=== PATIENT | male | born 1960 | race Caucasian/White ===

== ENCOUNTER 2021-03-07 12:56 | Emergency (ER) | payer OTHER, SELFPAY ==
--- NOTE | ~2021-03-07 | CT_ITS ---
EXAMINATION: CT abdomen pelvis w con DATE: 03/07/2021 INDICATION: Right-sided abdominal pain TECHNIQUE: Computed tomography (CT) of the abdomen and pelvis was performed with 100 mL Omnipaque-350 intravenous contrast. Automated exposure control and iterative reconstruction technique were employe d. The dose-length product was 328.18 mGy-cm. COMPARISON: None FINDINGS: Subtle patchy groundglass opacities in the bilateral lower lobes. Heart size is normal. Mild atherosc lerotic coronary artery calcification. No pericardial or pleural effusion. Small sliding-type hiatal hernia. There are several hepatic lesions the largest in the right hepatic lobe measuring 1.7 cm with suggestion of some peripheral puddling of contrast favoring hemangioma. A smaller 6 mm lesion in the left hepatic lobe demonstrates low attenuation most likely hepatic cyst. There into the lesion measu res approximately 7 mm with more ill-defined margins. Gallbladder, spleen, pancreas, bilateral adrena l glands and kidneys are normal. Bowels including the appendix are normal. Bladder is normal. Prostat omegaly measuring 4.9 x 3.9 cm. No free intraperitoneal gas or fluid. No pathologically enlarged abdo ya or pelvic lymphadenopathy. Severe lower thoracic spondylosis. Mild bilateral hip osteoarthritis with subarticular cystic change at the acetabula. IMPRESSION: 1. Subtle patchy groundglass opacities in the bilateral lower lungs most likely infectious or inflamm atory in etiology. 2. Normal appendix. No acute intra-abdominal/pelvic process. 3. Small sliding-type hiatal hernia. 4. 3 hepatic lesions, the largest measuring 1.7 cm with appearance suggestive but not definitive for hemangioma. Would recommend follow-up pre and postcontrast CT or MRI for more definitive determinatio n. 5. Prostatomegaly. Reviewed, dictated and finalized at location B. OPERATOR HELPER IMPRESSION: 1. Subtle patchy groundglass opacities in the bilateral lower lungs most likely infectious or inflammatory in etiology. 2. Normal appendix. No acute intra-abdominal/pelvic process. 3. Small sliding-type hiatal hernia. 4. 3 hepatic lesions, the largest measuring 1.7 cm with appearance suggestive b ut not definitive for hemangioma. Would recommend follow-up pre and postcontras t CT or MRI for more definitive determination. 5. Prostatomegaly.
[2021-03-07 13:06] VITALS: BP 157/69; PULSE 68; RESP 18; TEMP 36; O2SAT 100
--- NOTE | 2021-03-07 13:20 | ED.GENADULT ---
HPI - General Adult General Chief complaint: Abdominal Pain Stated complaint: right side pain Time Seen by Provider: 03/07/21 13:14 Source: RN notes reviewed History of Present Illness HPI narrative: Patient presents to emergency department from home for abdominal pain. Patient states pain began suddenly approximate 1 hour ago pain is located in the right side of the abdomen described as sharp and stabbing associate with nausea vomiting. States nothing makes the pain better or worse. States not taking thing for pain at home. Denies any fever chills chest pain shortness of breath or any other symptoms Related Data Home Medications Medication Instructions Recorded Confirmed quinapril 20 mg tablet 20 mg PO DAILY 11/30/19 11/29/20 simvastatin 20 mg tablet 20 mg PO DAILY 11/30/19 11/29/20 cholecalciferol (vitamin D3) 1,250 1,250 mcg PO WEEKLY 11/29/20 11/29/20 mcg (50,000 unit) oral wafer insulin glargine 100 unit/mL (3 18 unit SUBCUT DAILY ml 11/29/20 11/29/20 mL) subcutaneous pen insulin lispro 100 unit/mL 1 sliding scale dose SUBCUT 11/29/20 11/29/20 subcutaneous pen USEASDIRECTD Allergies Allergy/AdvReac Type Severity Reaction Status Date / Time Sulfa (Sulfonamide Allergy Unknown unknown Verified 03/07/21 13:28 Antibiotics) Review of Systems Review of Systems: Gen.: Denies fevers or chills ENT: Denies congestion Respiratory: Denies shortness of breath or cough CV: Denies chest pain or palpitations GI: See HPI denies burning, urgency, frequency or hematuria Musculoskeletal: Denies back pain or muscle pain Neuro: Denies numbness, tingling, weakness or focal weakness Skin: Denies rash Except as documented, all other systems reviewed and negative [facility] Past Medical History Medical History Charcot's joint of left foot Essential hypertension Other and unspecified hyperlipidemia Quadriceps strain Right thigh pain Type 1 diabetes mellitus with diabetic neuropathy Family History Family History Mother Patient's mother is in good health Father Patient's father is in good health Sibling Patient's sister is in good health Other Hypertension Social History Social History Smoking status: Never smoker Second hand tobacco smoke exposure: Yes Alcohol intake: current Substance use: never Exam Narrative: APPEARANCE: No acute distress, nontoxic, resting in bed HEENT: Normocephalic, atraumatic, OMM RESPIRATORY: No respiratory distress, clear to auscultation bilaterally with no rhonchi wheezing or rales CARDIOVASCULAR: RRR s murmur ABDOMINAL: Soft nondistended tender palpation right upper quadrant right lower quadrant no tenderness in left upper quadrant left lower quadrant no rebound or guarding MUSCULOSKELETAl: Moves all extremities. No clubbing, cyanosis or edema. NEURO: Awake and alert. Following commands, speech normal, no focal deficits SKIN:: Warm, dry. Normal Color PSYCHIATRIC: Normal affect/mood Course Course Emergency Course: Patient states pain is completely resolved at this time Discussed with patient he said no cough or shortness of breath when reviewed of the CT scan had a Covid year ago believe is likely inflammation from Covid Discussed Dr. Kaur presentation work-up discussed CT scan need for follow-up CT for possible hemangiomas in agreement at this time Discussed with patient results of workup and diagnosis. Discussed need for follow-up with primary care, proper use of medication, and reasons to return to the emergency department. Patient understands and agrees to current treatment plan Vital Signs Vital signs: Vital Signs Temperature 96.8 F L 03/07/21 13:06 Pulse Rate 68 03/07/21 13:06 Respiratory Rate 18 03/07/21 13:06 Blood Pressure 157/69 H 03/07/21 13:06 Pulse Oximetry 100 03/07/21 13:06
[2021-03-07 13:22] VITALS: O2SAT 100
[2021-03-07 13:23] LABS: Glucose Point of Care 91 mg/dl (65-105)
[2021-03-07] MEDS: SODIUM CHLORIDE 0.9% IV 1,000 ML 999 ML IV CONT (13:26)
[2021-03-07] MEDS: ONDANSETRON INJ 4 MG/2 ML VIAL IV PUSH (13:26)
[2021-03-07] MEDS: MORPHINE SULFATE (*CRX) 4 MG/ML INJ IV PUSH (13:27)
[2021-03-07 13:30] VITALS: O2SAT 100
[2021-03-07 13:34] LABS: Basophils Percent Auto 0.5 % (0.2-1.2); Eosinophils Absolute Auto 0.2 K/mm3 (0-0.3); Eosinophils Percent Auto 2.6 % (0-4.4); Hematocrit 42.1 % (42.0-52.0); Hemoglobin 14.3 g/dL (14.0-18.0); Immature Granulocyte Absolute 0.02 K/mm3 (0.00-0.031); Immature Granulocyte Percent A 0.3 % (0-0.5); Lymphocytes Absolute Auto 2.14 K/mm3 (0.9-3.2); Lymphocytes Percent Auto 29.2 % (18.3-44.2); Mean Corpuscular Hemoglobin 30.3 pg (26-34); Mean Corpuscular Volume 89.2 fl (80-100); Mean Platelet Volume 9.8 fl (7.4-10.4); Monocytes Absolute Auto 0.5 K/mm3 (0.1-0.6); Monocytes Percent Auto 6.4 % (2.6-8.5); Neutrophils Absolute Auto 4.5 K/mm3 (1.3-6.7); Platelet Count Result 226 k/mm3 (150-375); Red Blood Count 4.72 M/mm3 (4.6-6.20); Red Cell Distribution Width 12.3 % (11.5-14.5); White Blood Count 7.3 K/mm3 (4.5-10.0)
[2021-03-07 13:44] LABS: Alanine Aminotransferase 22 U/L (4-50); Albumin Level 4.7 g/dL (3.5-5.1); Alkaline Phosphatase 65 U/L (38-126); Anion Gap 8 mmol/L (8-16); Aspartate Amino Transferase 37 U/L (17-59); Bilirubin,Total 0.7 mg/dL (0.2-1.3); Blood Urea Nitrogen 21 mg/dL (9-20); Calcium 9.4 mg/dL (8.4-10.2); Carbon Dioxide 27 mmol/L (22-30); Chloride 100 mmol/L (98-107); Estimated CRCL calculation 95 ml/min; Estimated Glomerular Filt Rate > 60; Glucose 87 mg/dL (65-110); Lipase 113 U/L (23-300); Potassium 3.6 mmol/L (3.4-5.0); Sodium 135 mmol/L (137-145)
[2021-03-07 14:18] VITALS: O2SAT 100
[2021-03-07 14:27] LABS: Add Urine Microscopic? YES; Appearance Urine Cloudy (Clear); Bilirubin Urine Negative (Negative); Blood Urine 2+ (Negative); Color Urine Yellow (Yellow); Glucose Urine UA Negative (Negative); Ketones Urine Negative (Negative); Leukocyte Esterase Ur Negative LEU/UL (Negative); Mucus Urine Heavy /lpf; Nitrate Urine Negative (Negative); Protein Urine Negative (Negative); RBC Urine 21-50 /hpf (0-2); Squamous Epithelial Cell Urine Rare /hpf (Few); Urobilinogen Urine Negative mg/dL (<2.0); WBC Urine 0-3 /hpf
[2021-03-07 14:30] VITALS: BP 121/53; PULSE 90; RESP 16; O2SAT 100
--- NOTE | 2021-03-07 14:43 | PC.NURSE ---
Pt feeling much better. Dr. Navarro at bedside to update pt on results and treatment plan.
== END 2021-03-07 15:05 | disposition home or self-care (01) ==
PROVIDERS: Emergency Provider Emergency Medicine; PCP Internal Medicine
DX: R10.9 Unspecified abdominal pain (principal); I10 Essential (primary) hypertension; E10.610 Type 1 diabetes mellitus with diabetic neuropathic arthropathy; E78.5 Hyperlipidemia, unspecified; Z79.4 Long term (current) use of insulin; N40.0 Benign prostatic hyperplasia without lower urinary tract symptoms; K76.9 Liver disease, unspecified; K44.9 Diaphragmatic hernia without obstruction or gangrene; R91.8 Other nonspecific abnormal finding of lung field
CPT/HCPCS: 36415; 74177; 80053; 81001; 82948; 83690; 85025; 96361; 96374; 96375; 99284; J2270; J2405; J7030; Q9967

== ENCOUNTER → 2021-03-27 08:17 | Outpatient (CLI) | payer OTHER, SELFPAY ==
--- NOTE | ~2021-03-27 | CT_ITS ---
EXAMINATION: CT abdomen wo/w con DATE: 03/27/2021 08:45 INDICATION: Liver disease, unspecified. TECHNIQUE: Computed tomography (CT) of the abdomen was performed without and with 100 mL Omnipaque 35 0 intravenous contrast. Automated exposure control and iterative reconstruction technique were employ ed. The dose-length product was 762.30 mGy-cm. COMPARISON: CT abdomen and pelvis 03/07/2021 FINDINGS: The visualized portions of the lung bases demonstrate stable peripheral reticular and groun dglass opacities, likely chronic lung disease. No pleural effusion. The heart size is normal. No tierra cardial effusion. There are 2 cysts in the liver with the larger measuring 11 mm. There is a 2.2 cm m ass in the liver with a peripheral focus of hyperenhancement. The spleen, pancreas, adrenal glands, a nd right kidney are normal. There is cortical thinning of left kidney. The appendix is normal. There are no dilated loops of bowel. There are no pathologically enlarged lymph nodes. There is no free int raperitoneal fluid. There is mild chronic anterior wedging of multiple thoracic vertebral bodies. The re is mild thoracic and lumbar spondylosis. IMPRESSION: 1. 2.2 cm liver mass, which may be benign or less likely malignant. Abdomen MRI without and with cont rast is recommended. Reviewed, dictated and finalized at location B. ING MACHINE OPERATOR IMPRESSION: 1. 2.2 cm liver mass, which may be benign or less likely malignant. Abdomen MRI without and with contrast is recommended.
[2021-03-27 08:35] LABS: Estimated Glomerular Filt Rate > 60
== END ==
PROVIDERS: PCP Internal Medicine; Visit Provider Internal Medicine
DX: K76.9 Liver disease, unspecified (principal)
CPT/HCPCS: 74170; Q9967

== ENCOUNTER 2021-04-22 08:00 | Outpatient (CLI) | payer OTHER, SELFPAY ==
--- NOTE | ~2021-04-22 | MR_ITS ---
EXAMINATION: MR abdomen wo/w con DATE: 04/22/2021 09:32 INDICATION: Hepatomegaly, not elsewhere classified. Liver mass. TECHNIQUE: Magnetic resonance imaging (MRI) of the abdomen was performed without and with 15 mL Multi Brian intravenous contrast. Sequences included coronal T2-weighted FS FSE, coronal and axial FS FIEST A, axial T2-weighted FSE, coronal LAVA-flex, axial STIR FSE, axial DWI, axial dual-echo T1-weighted F SPGR, and axial LAVA. Postcontrast sequences included coronal LAVA-flex and a time course of axial LA VA. COMPARISON: Abdomen CT 03/27/2021 FINDINGS: In the right hepatic lobe, there is a 2.2 cm mass with delayed hyperenhancement. In the right hepatic lobe, there is a 1.4 cm mass with delayed hyperenhancement. There is a 6 mm cyst in left hepatic lob e. The gallbladder, spleen, pancreas, adrenal glands, and kidneys are normal. There are no dilated lo ops of bowel. There are no pathologically enlarged lymph nodes. There is no free intraperitoneal flui d. IMPRESSION: 1. Two liver masses measuring up to 2.2 cm with delayed hyperenhancement. In the absence of known mal ignancy or chronic liver disease, these findings are likely hemangiomas. Reviewed, dictated and finalized at location A. ELHEAD INSPECTOR IMPRESSION: 1. Two liver masses measuring up to 2.2 cm with delayed hyperenhancement. In th e absence of known malignancy or chronic liver disease, these findings are like ly hemangiomas.
== END 2021-04-22 08:01 | disposition home or self-care (01) ==
LOC: ANHIMG 08:04
PROVIDERS: PCP Internal Medicine; Visit Provider Internal Medicine
DX: R16.0 Hepatomegaly, not elsewhere classified (principal)
CPT/HCPCS: 74183; A9577

== ENCOUNTER → 2021-07-15 08:20 | Outpatient (CLI) | payer OTHER, SELFPAY ==
--- NOTE | ~2021-07-15 | XR_ITS ---
EXAMINATION: XR knee RT 3V DATE: 07/15/2021 08:36 INDICATION: Right knee pain. TECHNIQUE: 3 views of right knee including standing views were obtained. COMPARISON: Right femur radiographs 12/23/2018 FINDINGS: Bone alignment is normal. No fracture. There is mild osteoarthritis of lateral compartment characterized by a tiny osteophyte. No joint space narrowing. There is a moderate-sized knee joint ef fusion. IMPRESSION: 1. Mild right knee osteoarthritis. 2. Moderate-sized right knee joint effusion. Reviewed, dictated and finalized at location B.
== END ==
PROVIDERS: PCP Internal Medicine; Visit Provider Nurse Practitioner
DX: M17.11 Unilateral primary osteoarthritis, right knee (principal); M25.461 Effusion, right knee
CPT/HCPCS: 73562

== ENCOUNTER 2021-07-24 16:43 | Outpatient (CLI) | payer OTHER, SELFPAY ==
--- NOTE | ~2021-07-24 | MR_ITS ---
EXAMINATION: MR knee RT wo con DATE: 07/24/2021 17:52 INDICATION: Right knee pain. TECHNIQUE: Magnetic resonance imaging (MRI) of the right knee was performed without intravenous contr ast. Sequences included axial PD-weighted FS FSE, coronal PD-weighted FSE and PD-weighted FS FSE, sag ittal PD-weighted FSE, and sagittal T2-weighted FS FSE. COMPARISON: None. FINDINGS: Medial compartment: There is a bucket-handle tear of medial meniscus displaced into the intercondylar notch. There is sha llow partial-thickness cartilage loss of tibial condyle and femoral condyle. Lateral compartment: Lateral meniscus is normal. There is cartilage surface irregularity of femoral condyle. Tibial cartil age is normal. Patellofemoral compartment: There is cartilage surface irregularity of patella and trochlea. Ligaments and tendons: The anterior and posterior cruciate ligaments are normal. There are changes of prior sprains of media l collateral ligament and fibular collateral ligament characterized by thickening and increased signa l intensity proximally. There is mild patellar tendinopathy. Fluid: There is a moderate-sized knee joint effusion. There is trace fluid in a Ferreira's cyst. There is moder ate superficial infrapatellar bursitis and mild prepatellar bursitis. There is mild pes anserinus bur sitis. IMPRESSION: 1. Displaced bucket-handle tear of medial meniscus. 2. Mild tricompartmental chondrosis. 3. Moderate-sized knee joint effusion. Reviewed, dictated and finalized at location A.
== END 2021-07-24 16:44 | disposition home or self-care (01) ==
PROVIDERS: PCP Internal Medicine; Visit Provider Nurse Practitioner
DX: M17.11 Unilateral primary osteoarthritis, right knee (principal); S83.241A Other tear of medial meniscus, current injury, right knee, initial encounter; M25.461 Effusion, right knee
CPT/HCPCS: 73721

== ENCOUNTER 2021-08-04 09:31 | Outpatient (CLI) | payer OTHER, SELFPAY ==
--- NOTE | 2021-08-04 09:41 | ECG_ITS ---
Measurements Intervals [place] Rate: 70 P: 67 NE: 141 QRS: 54 QRSD: 93 T: 28 QT: 371 QTc: 402 Interpretive Statements SINUS RHYTHM BASELINE ARTIFACT- I, II, III, AVR, AVL, AVF NORMAL ECG Electronically Signed On 08-04-2021 10:21:10 CDT by Eliseo Pizarro D.O.
[2021-08-04 10:12] LABS: Anion Gap 6 mmol/L (8-16); Blood Urea Nitrogen 23 mg/dL (9-20); Calcium 8.9 mg/dL (8.4-10.2); Carbon Dioxide 25 mmol/L (22-30); Chloride 103 mmol/L (98-107); Estimated Glomerular Filt Rate > 60; Glucose 127 mg/dL (65-110); Potassium 3.9 mmol/L (3.4-5.0); Sodium 134 mmol/L (137-145)
== END 2021-08-04 09:32 | disposition home or self-care (01) ==
LOC: ANHSURGERY 09:34
PROVIDERS: Anesthesiology; PCP Internal Medicine; Visit Provider Orthopaedic Surgery
DX: E10.40 Type 1 diabetes mellitus with diabetic neuropathy, unspecified (principal); I10 Essential (primary) hypertension; Z01.818 Encounter for other preprocedural examination
CPT/HCPCS: 36415; 80048; 93005

== ENCOUNTER 2021-08-06 00:55 | Day surgery (SDC) | payer OTHER, SELFPAY ==
--- NOTE | 2021-08-01 14:44 | PC.NURSE ---
Report to the Outpatient Waiting Room, entrance under the green pavilion located off [facility], at time _1100 on date _08/06/21 . OR Time: _1300 . - You and your visitor will be asked a series of questions to screen for COVID 19 for your protection. - Only one visitor is allowed at this time. - The patient visitor is requested to leave or wait in car when not with patient. - A mask is required within the hospital. Patients may have clear liquids (water, carbonated beverages, clear teas, apple juice) until 3 hours prior to surgery with a maximum of 20 ounces. - No food from midnight until time of surgery - Infants may have breast milk until 4 hours before surgery, infant formula 6 hours prior to surgery. - Children will be allowed to drink immediately following surgery. If applicable, please bring a bottle or sippy cup to assist with drinking. Juice, water, soda, and popsicles are readily available. For infants on formula, please bring formula the day of surgery. Pacifiers are allowed. Take the following medications with a SIP of water the morning of surgery: NONE Medications to discontinue per physician PT STATES __DICLOFENAC 4 DAYS PRE OP PRE DR STRANGE_.VITAMIN D 3 DAYS PRE OP Date to take last doseDICLOFENAC 08/01/21 VITAMIN D 08/02/21 Please no make-up, nail ivorian, hairspray, perfume, deodorant, or body powder the day of surgery. No jewelry (including any body piercings) or valuables the day of surgery, leave them at home. Please take a shower or bath the night before, or the morning of, surgery with an antibacterial soap. Wear comfortable, loose fitting clothing. Children are encouraged to wear pajamas. - Jewelry must be removed prior to entering the operating room. Rings and piercings that are not removed may be cut off. - The hospital will not accept responsibility for valuables. - Please leave all valuables, including medications, at home the day of surgery. If you are going home after surgery, a licensed local company flatbed truck driver must drive you home. - NO public transportation without another adult. - We recommend that an adult stay with you for 24 hours following discharge. - We also recommend that you do not drive, make important decision, drink alcoholic beverages, or take any drugs that were not prescribed by your health care provider for at least 24 hours after your discharge time. For Pediatric surgeries, we recommend two adults accompany the child home (only one inside the building at this time). Follow any additional instructions given to you from your surgeon. If you or anyone in your household have experienced Covid symptoms in the past week, please notify your surgeon or the nurse liaison at the phone number below for possible testing. Telephone instructions given to _PATIENT AND SPOUSE and asked if any additional questions and then verbalized understanding. Patient advised to call surgeon office or pre surgery nurse liaison [phone] if any additional questions.
[2021-08-01 14:58] VITALS: BMI 23.1
[2021-08-06] VITALS (9 sets, daily range): BP systolic 102–139; BP diastolic 58–73; PULSE 55–65; RESP 12–16; TEMP 36.2–36.9; O2SAT 100
--- NOTE | 2021-08-06 07:53 | PM.IMHP ---
H&P: HPI History of Present Illness Date/Time: 08/06/21 07:53 61-year-old male patient of who presents today for arthroscopy of his right knee partial medial meniscectomy. He injured his knee on July 08 of this year. He [place] in [place] moving [place]. He was picking up a large rocks and twisting on his knee throwing them. When he was doing this he felt some pain in the knee. It became worse and swollen in the evening. The next day was extremely painful for him and he was unable to straighten it all the way. He did talk to his primary care doctor had an MRI scan on July 24. He was seen in the office by Dr. Pena on 08/01. MRI scan is reviewed. Patient was found have a displaced bucket-handle tear of the medial meniscus. He presents today for arthroscopy for this. Chief Complaint: Bucket-handle tear medial meniscus right knee. Review of Systems Review of Systems: All systems reviewed & are unremarkable except as noted in HPI and below PMFSH Past Medical History Medical History Charcot's joint of left foot Essential hypertension Other and unspecified hyperlipidemia Quadriceps strain Right thigh pain Type 1 diabetes mellitus with diabetic neuropathy Family History Family History Mother Patient's mother is in good health Father Patient's father is in good health Sibling Patient's sister is in good health Other Hypertension Social History Social History Smoking status: Never smoker Second hand tobacco smoke exposure: Yes Alcohol intake: current Alcohol use details: ONE DRINK PER MONTH Substance use: never Living arrangements: with family Spiritual care concerns: No Meds Home Medications and Allergies Home Medications Medication Instructions Recorded Confirmed Type quinapril 20 mg tablet 20 mg PO HS 11/30/19 08/01/21 History simvastatin 20 mg tablet 20 mg PO HS 11/30/19 08/01/21 History cholecalciferol (vitamin D3) 1,250 1,250 mcg PO WEEKLY 11/29/20 08/01/21 History mcg (50,000 unit) oral wafer insulin glargine 100 unit/mL (3 18 unit SUBCUT HS ml 11/29/20 08/01/21 History mL) subcutaneous pen insulin lispro 100 unit/mL 7 - 10 sliding scale dose SUBCUT 11/29/20 08/01/21 History subcutaneous pen USEASDIRECTD diclofenac sodium 75 mg 75 mg PO BID PRN #60 tablet 07/22/21 08/01/21 Rx tablet,delayed release Allergies Allergy/AdvReac Type Severity Reaction Status Date / Time Sulfa (Sulfonamide Allergy Severe Rash Verified 08/01/21 14:35 Antibiotics) Exam Narrative: 61-year-old male very alert pleasant. He is 5 ft 10 169 lb. He has a mild effusion right knee. Range of motion is from 5-130 degrees he has pain at extremes. Hip range of motion is full without discomfort negative Stinchfield maneuver. 2+ dorsalis pedis and posterior tibial artery pulse. Normal stability in the knee. No edema in lower extremity. Resp: Auscultation: clear to auscultation bilaterally Cardio: Rate: regular rate Rhythm: regular rhythm Assessment and Plan Additional Plan 61-year-old male who has a displaced bucket-handle tear of the medial meniscus with a locked knee. MRI scan was reviewed and findings were discussed with the patient. This is best treated with arthroscopy with removal of the bucket-handle tear. Surgical procedure as well as risks and complications were discussed in detail questions were answered and patient would like to proceed. He will see his primary care doctor pre-surgical clearance. He has been taking diclofenac and will stop this 1 week prior to surgery as well as any other aspirin or ibuprofen products.
[2021-08-06] MEDS: ACETAMINOPHEN 500 MG TABLET 1000 MG PO (11:27)
[2021-08-06] MEDS: LACTATED RINGERS 1,000 ML 30 ML IV CONT ×2 (11:37→15:01)
[2021-08-06] MEDS: KETOROLAC 15 MG/ML VIAL (*BKC) IV PUSH (11:40)
[2021-08-06 11:53] LABS: Glucose Point of Care 148 mg/dl (65-105)
--- NOTE | 2021-08-06 12:09 | WPDANESEPPF ---
Anes - Initial Pre Proc Eval Procedure: Operation Date: 08/06/21 13:00 Proposed Procedures p Right Knee Arthroscopy, Partial Medial Meniscectomy, proceed as indicated - Vasyl Pena MD Date/Time: 08/06/21 12:09 Surgeon: Vasyl Pena MD Pre Op Diagnosis: Bucket Handle Meniscus Tear Rt Knee Patient Data Age: 61 Gender: M Height: 1.85 m Weight: 75.9 kg Last Vital Signs Temp 36.9 C 08/06/21 11:20 Pulse 65 08/06/21 11:20 Resp 16 08/06/21 11:20 BP 118/62 08/06/21 11:20 Pulse Ox 100 08/06/21 11:20 Allergies Allergy/AdvReac Type Severity Reaction Status Date / Time Sulfa (Sulfonamide Allergy Severe Rash Verified 08/06/21 11:06 Antibiotics) Home Medications Medication Instructions Recorded Confirmed Type quinapril 20 mg tablet 20 mg PO HS 11/30/19 08/06/21 History simvastatin 20 mg tablet 20 mg PO HS 11/30/19 08/06/21 History cholecalciferol (vitamin D3) 1,250 1,250 mcg PO WEEKLY 11/29/20 08/06/21 History mcg (50,000 unit) oral wafer insulin glargine 100 unit/mL (3 18 unit SUBCUT HS ml 11/29/20 08/01/21 History mL) subcutaneous pen insulin lispro 100 unit/mL 7 - 10 sliding scale dose SUBCUT 11/29/20 08/06/21 History subcutaneous pen USEASDIRECTD diclofenac sodium 75 mg 75 mg PO BID PRN #60 tablet 07/22/21 08/06/21 Rx tablet,delayed release Laboratory Tests 08/06/21 11:52 POC Capillary Glucose 148 mg/dl H mg/dl (65-105) Patient hx anesthesia problems: none Family hx anesthesia problems: none Results Review: All pre-operative results and documents have been reviewed as part of the pre-operative evaluation. [facility] Past Medical History Medical History Charcot's joint of left foot Essential hypertension Other and unspecified hyperlipidemia Quadriceps strain Right thigh pain Type 1 diabetes mellitus with diabetic neuropathy Family History Family History Mother Patient's mother is in good health Father Patient's father is in good health Sibling Patient's sister is in good health Other Hypertension Social History Social History Smoking status: Never smoker Second hand tobacco smoke exposure: Yes Alcohol intake: current Alcohol use details: ONE DRINK PER MONTH Substance use: never Living arrangements: with family Spiritual care concerns: No Anes - Eval Final PreProcedure Day of Procedure 08/06/21 12:09 Patient weight: normal Heart: regular rate and rhythm Lungs: clear to auscultation Airway: Mallampati scale class II Neurological: alert and oriented Last oral intake: >/= 8 hours ASA classification: II Emergent: no Anesthetic plan: proceed Anesthesia type and monitoring: general LMA and standard monitoring Results Review: All pre-operative results and documents have been reviewed as part of the pre-operative evaluation. Informed Consent: The patient's anesthetic plan and its attendant risks and benefits were discussed with the patient/family/POA. Questions were solicited and answers provided to the satisfaction of the patient/family/POA.
--- NOTE | 2021-08-06 12:56 | WPDHPUPDATE1 ---
History and Physical Update Update Date/Time: 08/06/21 12:56 History and Physical has been reviewed, including an updated exam of the patient. There are NO changes in the patient's condition. Risks, benefits, and alternatives have been discussed and questions answered. Patient agrees to proceed with procedure.
[2021-08-06] MEDS: ceFAZolin 2 GM/D5W 50 ML 2 GM/50 ML BAG IVPB (13:23)
--- NOTE | 2021-08-06 15:22 | W.PM.PROC2 ---
Procedure Note - Detailed Date of Procedure 08/06/21 Pre-op Diagnosis Bucket Handle Meniscus Tear Rt Knee Post-op Diagnosis Same Procedure Performed Arthroscopic partial medial meniscectomy right knee Surgeon Vasyl Pena MD [employer] Business [employer] Officer [place] Anesthesia General Description of Procedure Patient was brought to the operating room and general anesthesia was administered. He received 2 g of Ancef preoperatively and the right leg was prepped draped usual fashion in the arthroscopic leg jauregui. We did not elevate the tourniquet during the procedure. 1% lidocaine with epinephrine was injected in the joint and into the portal sites for hemostasis and analgesia. Superomedial and anterior inferior portals were placed. The medial compartment was inspected. There was a displaced bucket-handle tear of the medial meniscus still attached at the anterior root and at the posterior root. The posterior horn went across the front the medial femoral condyle and posteriorly through the intercondylar notch. The meniscus was reduced. The tear was a white-white tear and given his age was recommended to have this resected as the healing potential with repair would be questionable. Arthroscopic punch and motorized shaver was used to remove the medial meniscus piecemeal. It was released from the anterior horn and the anterior root was transitioned. We took care to preserve his remaining medial meniscus tissue that was peripheral to the torn portion. Resection proceeded to the posterior root. There was chondromalacia superficial fibrillation diffusely over the anterior 1/2 of the medial femoral condyle evidently where this was articulating with the displaced bucket-handle tear of meniscus. The posterior weight-bearing portion the medial femoral condyle looked very good as the medial tibial plateau. ACL looked normal. Lateral compartment was normal. The patellofemoral joint showed chondromalacia superficial grade 1-2 in the patella and normal appearing trochlea. The suprapatellar pouch was flushed and free of debris. The portals were closed with 4-0 nylon suture in a soft bulky dressing applied the trace patient transferred postop recovery room in stable condition. Estimated Blood Loss 0 Tourniquet Time 0 Drains No Packing No Pathology None sent Complications No immediate complications Condition Stable Disposition PACU
[2021-08-06 15:27] LABS: Glucose Point of Care 129 mg/dl (65-105)
[2021-08-06 15:27] LABS: Glucose Point of Care 129 mg/dl (65-105)
[2021-08-06 16:33] LABS: Glucose Point of Care 111 mg/dl (65-105)
== END 2021-08-06 17:15 | disposition home or self-care (01) ==
PROVIDERS: PCP Internal Medicine; Visit Provider Orthopaedic Surgery
PROC: (CPT 29870; principal; 2021-08-06 13:00)
DX: S83.211A Bucket-handle tear of medial meniscus, current injury, right knee, initial encounter (principal); X50.0XXA Overexertion from strenuous movement or load, initial encounter; E10.40 Type 1 diabetes mellitus with diabetic neuropathy, unspecified; E10.610 Type 1 diabetes mellitus with diabetic neuropathic arthropathy; Z79.4 Long term (current) use of insulin; I10 Essential (primary) hypertension; E78.49 Other hyperlipidemia
CPT/HCPCS: 29881; 36415; 80048; 82948; 93005; A9270; J0690; J1885; J2250; J2405; J2704; J3010; J7120

== ENCOUNTER 2022-08-20 08:47 | Outpatient (CLI) | payer OTHER, SELFPAY ==
--- NOTE | ~2022-08-20 | NM_ITS ---
EXAMINATION: NM ubaldo stress w perfusion DATE: 08/20/2022 14:10 CDT INDICATION: Chest pain TECHNIQUE: Rest images were obtained following intravenous administration of 9.2 mCi Tc99m tetrofosmi n (Myoview). The patient was infused intravenously with Lexiscan (regadenoson). Then, 30 mCi Tc99m te trofosmin (Myoview) was administered intravenously, and stress images were obtained. Data was reconst ructed into short axis and horizontal and vertical long axis SPECT images. Gated SPECT images were al so obtained. COMPARISON: None. FINDINGS: There is no definite reversible or fixed perfusion abnormality to suggest ischemia or infar ction. There is no segmental wall motion abnormality. Left ventricular ejection fraction measures 6 6%. IMPRESSION: 1. No definite ischemia or infarct. 2. Normal left ventricular ejection fraction measuring 66%. Reviewed, dictated and finalized at location L.
--- NOTE | 2022-08-20 08:57 | EST_ITS ---
Patient Info Name: Luis Armando Villar Age: 62 years : 1960 Gender: Male Ht: 73 in Wt: 175 lbs BSA: 2.02 m2 Exam Date: 08/20/2022 9:48 AM Exam Location: [facility] Stress Patient Status: Outpatient Admit Date: 08/20/2022 Staff Ordering Physician: Rob Lugo APRN Attending Provider: Rob Lugo APRN Exercise Technologist: Aimee Cabrera RDCS Exercise Physician: Eliseo Pizarro DO Exam Type: CA stress ubaldo w NM Study Info Indications R07.9 - Chest pain, unspecified A regadenoson stress test was performed. Summary 1. 1. Negative lexiscan stress test for ischemic ST changes by ECG criteria. 2. 2. Stable hemodynamics throughout the test. 3. 3. Nuclear scan to follow and will be reported separately. Please correlate with it. 4. 4. Patient informed of the above results. Protocol: Lexiscan Stress ECG Details Stage: REST Duration (min): 5 min : 36 sec HR (bpm): 60 SBP (mmHg): 119 DBP (mmHg): 63 Stage: REST Duration (min): 6 min : 10 sec HR (bpm): 60 SBP (mmHg): 119 DBP (mmHg): 63 Stage: REST Duration (min): 8 min : 42 sec HR (bpm): 60 SBP (mmHg): 119 DBP (mmHg): 63 Stage: STAGE 1 Duration (min): 1 min : 0 sec HR (bpm): 74 SBP (mmHg): 122 DBP (mmHg): 56 Stage: RECOVERY Duration (min): 1 min : 0 sec HR (bpm): 78 SBP (mmHg): 120 DBP (mmHg): 50 Stage: RECOVERY Duration (min): 2 min : 0 sec HR (bpm): 77 SBP (mmHg): 120 DBP (mmHg): 50 Stage: RECOVERY Duration (min): 3 min : 0 sec HR (bpm): 75 SBP (mmHg): 116 DBP (mmHg): 54 Stage: RECOVERY Duration (min): 3 min : 12 sec HR (bpm): 76 SBP (mmHg): 116 DBP (mmHg): 54 Rest HR: 60 bpm Peak HR: 80 bpm Rest Sys BP: 119 mmHg Peak Sys BP: 122 mmHg Max Pred HR: 157 bpm % Max Pred HR: 51 % Target HR: 133 bpm Max RPP: 9,760 bpm*mmHg Termination Reason: Completed protocol Cardiac Symptoms: None Total Time: 1 min : 0 sec Rest Spence BP: 63 mmHg Peak Spence BP: 56 mmHg Total Dose: 0.4 mg Resting ECG Sinus rhythm. Stress ECG No ST changes. Arrhythmias None. Report Signatures
== END 2022-08-20 08:48 | disposition home or self-care (01) ==
PROVIDERS: PCP Family Medicine; Visit Provider Nurse Practitioner
DX: E10.40 Type 1 diabetes mellitus with diabetic neuropathy, unspecified (principal); R07.9 Chest pain, unspecified
CPT/HCPCS: 78452; 93017; A9502; J2785

== ENCOUNTER 2022-12-18 06:43 | Outpatient (CLI) | payer OTHER, SELFPAY ==
--- NOTE | ~2022-12-18 | MR_ITS ---
MRA HEAD History: Headache Technique: 3D time of flight MRA of the head is performed. Findings: The basilar and posterior cerebral arteries are normal. The bilateral posterior tibial francois louis are predominantly supplied via posterior communicating arteries, normal variant. Right and left distal internal carotid arteries and anterior and middle cerebral arteries are normal. There is no an eurysm, stenosis, or occlusion. Impression: No occlusion, stenosis, or aneurysm. Reviewed, dictated and finalized at location M. Impression: No occlusion, stenosis, or aneurysm.
--- NOTE | ~2022-12-18 | MR_ITS ---
MRI of the brain Clinical History: Migraine headache Technique: Axial and sagittal T1-weighted images were acquired. These were followed by axial T2-weigh karely, diffusion weighted, gradient, and FLAIR images. Findings: There is no abnormal signal seen in the brain parenchyma. No acute infarct, intracranial he morrhage, or mass lesion identified. There is probable jose cisterna magna. Ventricles and subarachnoid spaces otherwise are unremarkable. Orbits are unremarkable. There is pansinusitis of the paranasal sinuses. Mastoid air cells are clear . Major intracranial flow voids appear intact. Sagittal midline structures are intact. IMPRESSION: No parenchymal abnormality of the brain. Pansinusitis. Jose cisterna magna. Reviewed, dictated and finalized at location .
== END 2022-12-18 06:44 | disposition home or self-care (01) ==
PROVIDERS: PCP Family Medicine; Visit Provider Family Medicine
DX: G43.909 Migraine, unspecified, not intractable, without status migrainosus (principal); G44.84 Primary exertional headache
CPT/HCPCS: 70544; 70551

== ENCOUNTER 2024-02-28 09:50 | Outpatient (CLI) | payer OTHER, SELFPAY | END 2024-02-28 09:51 | disposition home or self-care (01) | LOC: ANHAUDIO 09:51 | PROVIDERS: PCP Family Medicine; Visit Provider Family Medicine | DX: H90.3 Sensorineural hearing loss, bilateral (principal) | CPT/HCPCS: 92557; 92567 ==

== ENCOUNTER 2024-09-12 08:08 | Outpatient (CLI) | payer MEDICARE, SELFPAY ==
--- NOTE | ~2024-09-12 | NM_ITS ---
EXAMINATION: NM ubaldo stress w perfusion DATE: 09/12/2024 10:16 INDICATION: Chest pain TECHNIQUE: Rest images were obtained following intravenous administration of 11.0 mCi Tc99m tetrofosm in (Myoview). The patient was infused intravenously with Lexiscan (Regadenoson). Then, 35.0 mCi Tc99m tetrofosmin (Myoview) was administered intravenously, and stress images were obtained. Data was erica nstructed into short axis and horizontal and vertical long axis SPECT images. Gated SPECT images were also obtained. COMPARISON: None. FINDINGS: There is no definite reversible or fixed perfusion abnormality to suggest ischemia or infar ction. There is normal left ventricular chamber size, wall motion and ejection fraction. Left ventr icular ejection fraction measures 61%. IMPRESSION: 1. Normal myocardial perfusion at rest and during stress. 2. Left ventricular ejection fraction measuring 61%. Reviewed, dictated and finalized at location A.
--- OUTSIDE RECORDS SUMMARY | 2024-09-12 08:18 | XMS_ITS | Referral Summary ---
Author Organization [facility] Address [address] [place] [address] Care Team Providers Care Trim Carpenter Name Role Phone Deepak Wolf DO Primary Care Provider [phone] Allergies Active Allergy Reactions Criticality Noted Date Comments Sulfa (Sulfonamide Antibiotics) Medications insulin syringe-needle U-100 0.3 mL 31 gauge x 5/16 syringe Use 1X daily as needed 007 Active lancets 33 gauge misc testing 8 times a day 018 Active BASAGLAR KWIKPEN U-100 INSULIN 100 unit/mL (3 mL) insulin penIndications:Diabetic peripheral neuropathy associated with type 1 diabetes mellitus (HCC) INJECT 20 TO 25 UNITS SUBCUTANEOUSLY UP TO ONCE DAILY AT BEDTIME DIRECTED 10 mL 2 019 Active Additional Information Patient not taking.Reported on 06/24/2021 blood-glucose meter (OneTouch Verio System) misc One Touch Verio - Use to test blood glucose as directed. 1 each 020 Active blood-glucose sensor (Dexcom G6 Sensor) deviceIndications:Type 1 diabetes mellitus with diabetic polyneuropathy (HCC),Hypoglycemia due to type 1 diabetes mellitus (HCC) Use one sensor every 10 days. 9 Device 3 020 Active blood-glucose transmitter (Dexcom G6 Transmitter) deviceIndications:Type 1 diabetes mellitus with diabetic polyneuropathy (HCC),Hypoglycemia due to type 1 diabetes mellitus (HCC) Use one transmitter every 3 months 1 Device 3 020 Active blood-glucose meter,continuous (Dexcom G6 Boilermaker Helper) misc 1 Dexcom G6 Boilermaker Helper 1 each 020 Active blood glucose diagnostic (OneTouch Verio test strips) stripIndications:Diabet ic peripheral neuropathy associated with type 1 diabetes mellitus (HCC) CHECK BLOOD SUGAR DIRECTED UP TO SEVEN TIMES DAILY 600 each 3 Active insulin lispro (HumaLOG ROOPA) 100 unit/mL half-unit pen for injectionIndications:Di abetic peripheral neuropathy associated with type 1 diabetes mellitus (HCC) INJECT 10 UNITS UNDER THE SKIN 3 (THREE) TIMES A DAY 15 mL 3 Active Additional Information Patient not taking.Reported on 06/24/2021 ergocalciferol (Vitamin D2) 50,000 unit capsule TAKE 1 CAPSULE BY MOUTH ONCE WEEKLY DIRECTED 13 capsule 1 022 Active onetouch ultrasoft lancets USE TO TEST 5-7 TIMES DAILY DIRECTED 400 each 3 022 Active LANTUS 100 unit/mL (3 mL) pen for injection INJECT 18 UNITS UNDER THE SKIN DAILY INJECT 20-25 UNITS INTO SKIN DAILY DIRECTED FOR 60 DAYS 15 mL 8 Active simvastatin (ZOCOR) 20 mg tabletIndications:Pure hypercholesterolemia TAKE ONE TABLET BY MOUTH ONCE DAILY AT BEDTIME 90 tablet Active quinapriL (ACCUPRIL) 20 mg tabletIndications:Essen tial hypertension Take 1 tablet (20 mg total) by mouth daily for 15 days Pt needs follow up appointment 15 tablet 022 Active Active Problems Problem Noted Date Diagnosed Date Hypoglycemia due to type 1 diabetes mellitus 01/2019 Overview (05/09/2018): Ongoing problem, had resolved with use of Dexcom CGM; but is now a bigger problem and adding risk of untoward events. Assessment & Plan (11/13/2019 9:54 AM CDT): I strongly suggest using CGM for safety purposes. In the meantime, continue frequent checking. Assessment & Plan (12/26/2018 7:01 PM CDT): This problem improved with use of Dexcom CGM previously. Please restart the CGM if at all possible as a safety measure. Assessment & Plan (05/09/2018 10:44 AM MONUMENTAL STONEMASON): I recommend restarting the Dexcom G6 CGM, will help with an appeal letter re: Costs/copays. Essential hypertension 11/08/2017 Assessment & Plan (06/24/2021 5:50 PM CDT): BP is at target on quinapril, 20 mg daily. Assessment & Plan (12/26/2018 6:56 PM CDT): BP is excellent on quinapril, 20 mg daily. Assessment & Plan (05/09/2018 4:33 PM MONUMENTAL STONEMASON): Hypertension is unchanged. Continue current treatment regimen. Blood pressure will be reassessed at the next regular appointment. Assessment & Plan (11/08/2017 7:59 PM CDT): Hypertension is unchanged. Continue current treatment regimen. On quinapril. Blood pressure will be reassessed at the next regular appointment. Charcot's joint arthropathy in type 1 diabetes bola tanika 11/08/2017 Assessment & Plan (06/24/2021 5:49 PM CDT): Continue foot care and shoe inserts to accommodate the Charcot joint. Assessment & Plan (05/09/2018 10:47 AM MONUMENTAL STONEMASON): Charcot deformity is stable. Continue in-shoe orthotics. Assessment & Plan (11/08/2017 11:38 AM CDT): Diabetes is unchanged. Continue current treatment regimen. Diabetes will be reassessed in 6 months. Retinopathy, background, proliferative 8 Type 1 diabetes mellitus with diabetic polyneuro alexis 11/08/2017 Assessment & Plan (06/24/2021 5:50 PM CDT): Glucose control is stable on the current regimen, A1c well within the target range. Recommendations: - Continue use of Dexcom G6 and fingerstick monitoring for calibration and when Dexcom is not available. Calibrate with a straight across arrow on CGM - Continue current insulin doses and adjustments. Plan labs before the next visit. Assessment & Plan (11/11/2020 8:59 AM CDT): Diabetes control has been excellent for years, and without major lows or highs. CGM cannot be viewed because he uses a reader, not his phone. Recommendations: - Try to use phone for CGM reading if possible - Labs are ordered at [facility] - Follow-up in 6 months Assessment & Plan (11/13/2019 9:51 AM CDT): Pt continues to do well, however is at very high risk for mild and severe hypoglycemia. Recommendations: - Check A1c - Reorder Dexcom G6 for continuous use and alarms - Continue to monitor frequently, 8 - 10X daily - Continue current insulin doses. Assessment & Plan (12/26/2018 6:59 PM CDT): Insulin doses are about right, but hypoglycemia is too frequent. I strongly suggest restarting use of a Dexcom G6 CGM for safety. I have ordered this - please follow-up. The alarms are necessary for persons with frequent hypoglycemia for safety of both you and those around you. Examination of fingerstick download shows significant variability, which make dosing advice somewhat difficult, since lows occur at the same time as high glucoses. I would also advise running a bit higher for a time, at least until you obtain the CGM with real-time alarms. Assessment & Plan (05/09/2018 4:34 PM MONUMENTAL STONEMASON): Diabetes is worsening. Continue current treatment regimen. Reminded to bring in blood sugar diary at next visit. Discussed ways to avoid symptomatic hypoglycemia. Reminded to get yearly retinal exam. Diabetes will be reassessed in 6 months. I strongly recommend continuous glucose monitoring, which is needed for safety as well as glucose control. Assessment & Plan (11/08/2017 8:01 PM CDT): Diabetes is stable with A1c of 6.0% today. He does very well on MDI. Continue lantus and humalog at current doses. Ordered CBC, CMP, microalbumin/cr ratio, tsh, lipid panel today. Hyperlipidemia 01/11/2012 Assessment & Plan (06/24/2021 5:50 PM CDT): LDL is at target on simvastatin, 20 mg daily. Assessment & Plan (11/13/2019 9:47 AM CDT): Pt has 8.8% risk of ASCVD event in 10 years. LDL has been controlled on simvastatin, panel will be rechecked. Assessment & Plan (12/26/2018 6:53 PM CDT): Lipid panel is ordered to recheck levels on statin therapy. Assessment & Plan (11/08/2017 8:00 PM CDT): Lipid abnormalities are stable. Check lipid panel today. Continue simvastatin 20 mg daily Diabetic peripheral neuropat hy associated with type 1 diabetes mellitus 04/12/2007 Assessment & Plan (12/26/2018 6:55 PM CDT): Neuropathy is stable, and consists mostly of paresthesias. I recommend taking a B-complex vitamin daily and alpha lipoic acid, 600 mg bid. Assessment & Plan (05/09/2018 10:47 AM MONUMENTAL STONEMASON): Stable, loss of sensation. No ulcerations or worsening of Charcot problem. Assessment & Plan (11/08/2017 7:59 PM CDT): Significant neuropathy with Crhacot foot. Follows closely with podiatry. Optimize glycemic control. Social History Tobacco Use Types Packs/Day Years Used Date Smoking Tobacco: Never Sex and Gender Information Value Date Recorded Sex Assigned at Not on file Legal Sex Male 1:22 AM MONUMENTAL STONEMASON Gender Identity Not on file Sexual Orientation Not on file Last Filed Vital Signs Vital Sign Reading Time Taken Comments Blood Pressure 113/65 06/24/2021 12:55 PM CDT Pulse 64 06/24/2021 12:55 PM CDT Temperature 36.6 C (97.8 F) 06/24/2021 12:55 PM CDT Respiratory Rate - - Oxygen Saturation - - Inhaled Oxygen Concentration - - Weight 76.7 kg (169 lb) 06/24/2021 12:55 PM CDT Height 185.4 cm (6' 1) 06/24/2021 12:55 PM CDT Body Mass Index 22.3 06/24/2021 12:55 PM CDT Plan of Treatment Not on file Insurance [facility] CHOICE PLUS [facility] HMO/PPO Address: [place] [address] Care Teams Trim Carpenter Relationship Specialty Start Date End Date Deepak Wolf DO PCP - General Internal Medicine 09/20/17
--- OUTSIDE RECORDS SUMMARY | 2024-09-12 08:18 | XMS_ITS | Clinical Summary ---
Author Organization [facility] Address [address] [place] [address] Care Team Providers Care Oncology Research Rn Name Role Phone Deepak Wolf DO Primary Care Provider Allergies Active Allergy Reactions Criticality Noted Date [...] 3 020 Active blood-glucose meter,continuous (Dexcom G6 Sail Repairer) misc 1 Dexcom G6 Sail Repairer 1 each 020 Active blood glucose diagnostic [...] measure. Assessment & Plan (05/09/2018 10:44 AM TRACK FITTER): I recommend restarting the Dexcom G6 CGM, will help with an appeal letter re: Costs/copays. Essential hypertension 11/08/2017 Assessment & Plan (06/24/2021 5:50 PM CDT): BP is at target on quinapril, 20 mg daily. Assessment & Plan (12/26/2018 6:56 PM CDT): BP is excellent on quinapril, 20 mg daily. Assessment & Plan (05/09/2018 4:33 PM TRACK FITTER): Hypertension is unchanged. Continue current treatment regimen. [...] joint. Assessment & Plan (05/09/2018 10:47 AM TRACK FITTER): Charcot deformity is stable. Continue in-shoe orthotics. [...] alarms. Assessment & Plan (05/09/2018 4:34 PM TRACK FITTER): Diabetes is worsening. Continue current treatment regimen. [...] bid. Assessment & Plan (05/09/2018 10:47 AM TRACK FITTER): Stable, loss of sensation. No ulcerations or worsening of Charcot problem. Assessment & Plan (11/08/2017 7:59 PM CDT): Significant neuropathy with Crhacot foot. Follows closely with podiatry. Optimize glycemic control. Surgical History Surgery Date Site/Laterality Comments [place] TREATMENT EXTENSIVE RETIN OPATHY PHOTOCOAGULATION Bilateral Destruction Of Retinopathy By Laser - (Added by TW Conv) [place] XCAPSL CTRC RMVL INSJ IO LENS PROSTH W/O ECP Extracaps Cataract Extract With Prosthesis Insert Right Eye - January, (Added by TW Conv) Medical History Medical History Date Comments Type 2 or unspecified type d iabetes mellitus with other specified manifestations Diabetic Ulcer Of The Left F ourth Toe - required phalangeal reduction, no recurrence (Added by TW Conv) Personal history of healed t raumatic fracture History of fracture of foot - repeat fracture 2009; same location as earlier fx. (Added by TW Conv) Type 2 diabetes mellitus wit h hypoglycemia without coma (HCC) Diabetic hypoglycemia - (Added by TW Conv) Social History Tobacco Use Types Packs/Day Years Used Date Smoking Tobacco: Never Sex and Gender Information Value Date Recorded Sex Assigned at Not on file Legal Sex Male 1:22 AM TRACK FITTER Gender Identity Not on file Sexual Orientation Not on file Obstetrics History Last Filed Vital Signs Vital Sign Reading [...] Plan of Treatment Not on file [place] [address] [facility] CHOICE PLUS Care Teams Oncology Research Rn Relationship Specialty Start Date End Date Deepak Wolf DO PCP - General Internal Medicine 09/20/17
--- NOTE | 2024-09-12 08:30 | EST_ITS ---
Patient Info Name: Luis Armando Villar Age: 64 years : 1960 Gender: Male Ht: 74,170 in Wt: 170 lbs BSA: 30.97 m2 HR: 58 bpm BP: 113 / 64 mmHg Exam Date: 09/12/2024 8:30 AM Patient Status: O Admit Date: 09/12/2024 Exam Type: CA stress ubaldo w NM A regadenoson stress test was performed. Staff Referring Physician: Rajeev Kaba Attending Provider: Rajeev Kaba Exercise Technologist: Calista Kinney Exercise Physician: Eliseo Pizarro DO Summary 1. 1. Negative lexsican stress test for ischemic ST changes by ECG criteria. 2. 2. Stable hemodynamics throughout the test. 3. 3. Nuclear scan to follow and will be reported separately. Please correlate with it. 4. 4. Patient informed of the above results. Protocol: Lexiscan Stress ECG Details Stage: REST Duration (min): 0 min : 44 sec HR (bpm): 58 SBP (mmHg): 113 DBP (mmHg): 64 Stage: REST Duration (min): 6 min : 54 sec HR (bpm): 59 SBP (mmHg): 113 DBP (mmHg): 64 Stage: STAGE 1 Duration (min): 1 min : 0 sec HR (bpm): 72 SBP (mmHg): 137 DBP (mmHg): 76 Stage: RECOVERY Duration (min): 1 min : 0 sec HR (bpm): 78 SBP (mmHg): 137 DBP (mmHg): 76 Stage: RECOVERY Duration (min): 2 min : 0 sec HR (bpm): 78 SBP (mmHg): 137 DBP (mmHg): 76 Stage: RECOVERY Duration (min): 3 min : 0 sec HR (bpm): 71 SBP (mmHg): 125 DBP (mmHg): 53 Stage: RECOVERY Duration (min): 3 min : 9 sec HR (bpm): 72 SBP (mmHg): 125 DBP (mmHg): 53 Rest HR: 59 bpm Peak HR: 79 bpm Rest Sys BP: 113 mmHg Peak Sys BP: 137 mmHg Max Pred HR: 155 bpm % Max Pred HR: 51 % Target HR: 132 bpm Max RPP: 10,823 bpm*mmHg Termination Reason: Completed protocol Cardiac Symptoms: None Total Time: 1 min : 0 sec Rest Spence BP: 64 mmHg Peak Spence BP: 76 mmHg Total Dose: 0.4 mg Resting ECG Sinus bradycardia. Stress ECG No ST changes. Arrhythmias None. Report Signatures
== END 2024-09-12 08:09 | disposition home or self-care (01) ==
PROVIDERS: PCP Family Medicine; Visit Provider Family Medicine
DX: R07.89 Other chest pain (principal)
CPT/HCPCS: 78452; 93017; A9502; J2785